=== PATIENT | female | born 1960 | race Caucasian/White ===

== ENCOUNTER → 2021-08-28 | Outpatient (CLI) | payer OTHER | END | disposition home or self-care (01) | LOC: NUCLEAR 09:44 | PROVIDERS: ATTEND Specialist | DX: R07.81 Pleurodynia (principal); R07.89 Other chest pain | CPT/HCPCS: 78306; A9503 ==

== ENCOUNTER 2024-12-21 05:21 | Day surgery (SDC) | payer OTHER ==
[2024-12-13 11:56] VITALS: BP 140/80
[~2024-12-21] VITALS: Ht 157.5 cm; Wt 76.2 kg
[2024-12-21] MEDS ORDERED: BUPIVACAINE LIPOSOME/PF 266 MG/20 ML VIAL IJ ONE (10:32)
[2024-12-21] MEDS ORDERED: METRONIDAZOLE/SODIUM CHLORIDE 500 MG/100 ML PIGGYBACK IV ONE (10:35)
[2024-12-21] MEDS ORDERED: HEMOSTATIC MATRIX 1 KIT KIT TOP ONE ×2 (10:35→10:36)
[2024-12-21] MEDS ORDERED: CEFTRIAXONE SODIUM 2,000 MG VIAL ONE (10:35)
[2024-12-21] MEDS ORDERED: POVIDONE-IODINE 118 ML BOTT TOP ONE (10:36)
[2024-12-21] MEDS ORDERED: DIBUCAINE 30 GM TUBE ONE (10:36)
[2024-12-21] MEDS ORDERED: BUPIVACAINE HCL/MPF 0.5% 30ML VIAL ONE (10:36)
[2024-12-21] MEDS ORDERED: TAMSULOSIN HCL 0.4 MG CAP PO ONE ×2 (11:15→16:05)
[2024-12-21] MEDS ORDERED: OXYCODONE HCL5 MG PO (12:08)
== END 2024-12-21 17:35 | disposition home or self-care (01) ==
LOC: CIR.AMB 05:21
PROVIDERS: ATTEND Surgery
DX: K64.8 Other hemorrhoids (principal); K64.4 Residual hemorrhoidal skin tags; K62.89 Other specified diseases of anus and rectum; K62.5 Hemorrhage of anus and rectum; Z88.1 Allergy status to other antibiotic agents; Z91.02 Food additives allergy status; G43.909 Migraine, unspecified, not intractable, without status migrainosus; F32.A Depression, unspecified